=== PATIENT | female | born 1960 | race Caucasian/White ===

== ENCOUNTER 2018-05-27 14:08 | Emergency (ER) | payer OTHER ==
--- NOTE | 2018-05-27 15:03 | EDPHY ---
H & P Stated Complaint: Pt began having memory loss and h/a after ascending, better after descendim Time Seen by Provider: 05/27/18 15:02 HPI/ROS: CHIEF COMPLAINT: Headache, ataxia, nausea while visiting altitude HISTORY OF PRESENT ILLNESS: The patient presents to the ED after she developed headache, ataxia and nausea earlier today. The patient is visiting [place] from [place]. She had a rapid ascent last night. While hiking today altitude she developed headache, nausea, ataxia and confusion. The patient's symptoms have improved since coming down to 5000 ft. The patient denies significant past medical history aside from hypothyroidism. She continues to complain of a headache and some posterior neck pain. The patient denies any peripheral numbness or weakness. She does report ongoing ataxia. REVIEW OF SYSTEMS: A comprehensive 10 point review of systems is otherwise negative aside from elements mentioned in the history of present illness. Source: Patient Exam Limitations: No limitations - Personal History Current Tetanus/Diphtheria Vaccine: Unsure - Medical/Surgical History Hx Asthma: No Hx Chronic Respiratory Disease: No Hx Diabetes: No Hx Cardiac Disease: No Hx Renal Disease: No Hx Cirrhosis: No Hx Alcoholism: No Hx HIV/AIDS: No Hx Splenectomy or Spleen Trauma: No Other PMH: Thyroid - Social History Smoking Status: Current every day smoker - Physical Exam Exam: General Appearance: Alert, mild discomfort Eyes: Pupils equal and round no pallor or injection ENT, Mouth: Mucous membranes moist Respiratory: There are no retractions, lungs are clear to auscultation Cardiovascular: Regular rate and rhythm Gastrointestinal: Abdomen is soft and nontender, no masses, bowel sounds normal Neurological: 5/5 strength all 4 extremities, cranial nerves 2-12 intact, little slow abnormal [id number], truncal ataxia Skin: Warm and dry, no rashes Musculoskeletal: Neck is supple nontender Extremities: symmetrical, full range of motion Constitutional: Initial Vital Signs Temperature (C) 36.5 C 05/27/18 14:16 Heart Rate 79 05/27/18 14:16 Respiratory Rate 16 05/27/18 14:16 Blood Pressure 162/104 H 05/27/18 14:16 O2 Sat (%) 96 05/27/18 14:16 O2 Delivery Mode Room Air Allergies/Adverse Reactions: aspirin Allergy (Verified 05/27/18 14:22) Home Medications: Medication Instructions Recorded Dexamethasone [Decadron 4 MG (*)] 4 mg PO TID PRN #16 tab 05/27/18 Estradiol 05/27/18 Levothyroxine 05/27/18 Nexium 05/27/18 Medical Decision Making - Diagnostics Imaging Results: Imaging Impressions Head CT 05/27/18 15:29 Impression: 1. No significant intracranial abnormality seen. If symptoms worsen, additional imaging may be necessary. Findings discussed with the nurse answering for Ag Parker M.D. at 16: 54 hour, 05/27/2018. Head CTA 05/27/18 15:[address]: [address] angiogram of the neck. 2. Normal CT angiogram of the al[place] of [place], as detailed above. Note: All calculations were performed using NASCET criteria. Findings discussed with the nurse answering for Ag Parker M.D. at 16: 54 hour, 05/27/2018. Neck CTA 05/27/18 15:[address]: [address] angiogram of the neck. 2. Normal CT angiogram of the al[place] of [place], as detailed above. Note: All calculations were performed using NASCET criteria. Findings discussed with the nurse answering for Ag Parker M.D. at 16: 54 hour, 05/27/2018. ED Course/Re-evaluation: The patient presents to the ED with headache, nausea, confusion and ataxia in the setting of a recent rapid ascent to 9000 ft. The patient has no prior history of stroke or TIA. The patient presents to the ED with symptoms most consistent with mild HACE from acute mountain sickness. The patient had an IV established. She received a L of normal saline. She received 10 mg of Decadron. Given her age and complaints of headache and neck discomfort a CT scan of the brain and angiogram of the head and neck were obtained. Patient was re-evaluated at 5:30 p.m.. The results of her CT head and angiographic studies are normal. Her ataxia is significantly improved. Her neurologic examination is now normal. The patient will be discharged home with a short course of dexamethasone. She is advised to stay at lower elevation for further acclimatization. The patient will be given customary aftercare instructions and return precautions. Differential Diagnosis: Differential diagnosis considered includes acute mountain sickness, cerebral edema, stroke, TIA, vertebral artery dissection, dehydration, arrhythmia - Data Points Laboratory Results: Laboratory Results 05/27/18 14:36 05/27/18 14:36 05/27/18 05/27/18 14:36 14:36 WBC 7.87 10^3/uL 10^3/uL (3.80-9.50) RBC 4.51 10^6/uL 10^6/uL (4.18-5.33) Hgb 13.9 g/dL g/dL (12.6-16.3) Hct 39.9 % % (38.0-47.0) MCV 88.5 fL fL (81.5-99.8) MCH 30.8 pg pg (27.9-34.1) MCHC 34.8 g/dL g/dL (32.4-36.7) RDW 11.8 % % (11.5-15.2) Plt Count 213 10^3/uL 10^3/uL (150-400) MPV 11.5 fL fL (8.7-11.7) Neut % (Auto) 55.7 % % (39.3-74.2) Lymph % (Auto) 33.9 % % (15.0-45.0) Murray % (Auto) 8.0 % % (4.5-13.0) Eos % (Auto) 1.5 % % (0.6-7.6) Baso % (Auto) 0.8 % % (0.3-1.7) Nucleat RBC Rel Count 0.0 % % (0.0-0.2) Absolute Neuts (auto) 4.38 10^3/uL 10^3/uL (1.70-6.50) Absolute Lymphs (auto) 2.67 10^3/uL 10^3/uL (1.00-3.00) Absolute Monos (auto) 0.63 10^3/uL 10^3/uL (0.30-0.80) Absolute Eos (auto) 0.12 10^3/uL 10^3/uL (0.03-0.40) Absolute Basos (auto) 0.06 10^3/uL 10^3/uL (0.02-0.10) Absolute Nucleated RBC 0.00 10^3/uL 10^3/uL (0-0.01) Immature Gran % 0.1 % % (0.0-1.1) Immature Gran # 0.01 10^3/uL 10^3/uL (0.00-0.10) Sodium 137 mEq/L mEq/L (135-145) Potassium 4.1 mEq/L mEq/L (3.3-5.0) Chloride 107 mEq/L mEq/L (97-110) Carbon Dioxide 28 mEq/l mEq/l (22-31) Anion Gap 2 mEq/L L mEq/L (8-16) BUN 12 mg/dL mg/dL (7-23) Creatinine 0.7 mg/dL mg/dL (0.6-1.0) Estimated GFR > 60 Glucose 100 mg/dL mg/dL (70-100) Calcium 9.3 mg/dL mg/dL (8.5-10.4) Medications Given: Discontinued Medications Dexamethasone (Decadron Injection) 10 mg IVP EDNOW ONE Stop: 05/27/18 15:27 Last Admin: 05/27/18 15:37 Dose: 10 mg Sodium Chloride (Ns) 1,000 mls @ 0 mls/hr IV ONCE ONE; Wide Open PRN Reason: Protocol Stop: 05/27/18 15:12 Last Admin: 05/27/18 15:20 Dose: 1,000 mls Departure - Departure Disposition: Home, Routine, Self-Care Clinical Impression: Acute mountain sickness Condition: Good Instructions: Mountain Sickness (ED) Additional Instructions: 1. Return to the ED for any worsening symptoms. 2. Take dexamethasone as prescribed for 24 hr after the resolution of your symptoms. 3. I do recommend stain at a lower elevation of possible. Referrals: NONE *PRIMARY CARE P,. [Primary Care Provider] - As per Instructions Prescriptions: Dexamethasone [Decadron 4 MG (*)] 4 mg PO TID PRN #16 tab PRN Reason: For altitude illness
[2018-05-27] MEDS ORDERED: NS 1,000 ML IV ONE (15:11)
[2018-05-27 15:25] LABS: PLATELET COUNT 213 10^3/uL (150-400)
[2018-05-27] MEDS ORDERED: DEXAMETHASONE 10 MG/ML VIAL IVP ONE (15:26)
[2018-05-27] MEDS ORDERED: IOPAMIDOL (ISOVUE 370) 100 ML BTL IV ONE (15:37)
[2018-05-27 17:55] VITALS: BP 168/111
== END 2018-05-27 17:55 | disposition home or self-care (01) ==
DX: T70.29XA Other effects of high altitude, initial encounter (principal); F17.200 Nicotine dependence, unspecified, uncomplicated
CPT/HCPCS: 96374; J1100; Q9967